=== PATIENT | male | born 1990 | race Two or more races ===

== ENCOUNTER 2019-10-04 19:06 | Emergency (ER) | payer MEDICAID, OTHER ==
[~2019-10-04] VITALS: Ht 177.8 cm; Wt 81.6 kg
--- NOTE | 2019-10-04 19:26 | NUR ---
PT [id number] FROM RETIREMENT. ETOH. ADMITS TO DRINKING LOTS OF VODKA AND GIN. PT LETHARGIC BUT AROUSABLE BY MECHANICAL STIMULATION, RR EVEN AND UNLABORED ON RA W/ NAD NOTED. PT CONNECTED TO THE [employer]RAKE [employer] COATER AND POX
--- NOTE | 2019-10-04 19:30 | NUR ---
Linda nino in ED - 10/04/19 at 2059 by MODE PT REFUSING URINE. BIANCA VILLALOBOS MADE AWARE
[2019-10-04 19:54] LABS: BASOPHILS # (AUTO) 0.1 /CMM (0.0-0.2); BASOPHILS % (AUTO) 1.3 % (0.0-2.0); EOSINOPHILS % (AUTO) 0.5 % (0.0-6.0); HEMATOCRIT 39 % (39-51); HEMOGLOBIN 13.1 g/dL (13.5-17.5); LYMPHOCYTES # (AUTO) 2.4 /CMM (0.8-4.8); LYMPHOCYTES % (AUTO) 29.8 % (20.0-44.0); MEAN CORPUSCULAR HGB CONC 34 g/dl (31.0-36.0); MEAN CORPUSCULAR VOLUME 92 fL (80-96); MONOCYTES # (AUTO) 0.4 /CMM (0.1-1.30); NEUTROPHILS # (AUTO) 5.1 /CMM (1.8-8.9); NEUTROPHILS % (AUTO) 63.4 % (43.0-81.0); PLATELET COUNT (AUTO) 566 /CMM (150-450); RED BLOOD CELL COUNT(AUTO) 4.23 MIL/uL (4.5-6.0)
[2019-10-04 20:07] LABS: CALCIUM, SERUM 8.4 mg/dL (8.5-10.1); CARBON DIOXIDE 28 mmol/L (21-32); CHLORIDE 107 mmol/L (98-107); CREATININE 0.8 mg/dL (0.6-1.3); GLUCOSE 107 mg/dL (74-106); POTASSIUM 3.8 mmol/L (3.5-5.1); SODIUM SERUM 146 mmol/L (136-145); UREA NITROGEN, BLOOD 10 mg/dL (7-18)
[2019-10-04 20:12] LABS: ALANINE AMINOTRANSFERASE 41 U/L (12-78); ALBUMIN 3.9 g/dL (3.4-5.0); ALCOHOL, BLOOD 428 mg/dL (0-0); ALKALINE PHOSPHATASE 143 U/L (46-116); ASPARTATE AMINOTRANSFERASE 36 U/L (15-37); BILIRUBIN,TOTAL 0.2 mg/dL (0.2-1.0); TOTAL PROTEIN, SERUM 7.1 g/dL (6.4-8.2)
[2019-10-04 20:13] LABS: ACETAMINOPHEN < 2 ug/ml (10-30); SALICYLATE < 2.8 mg/dL (2.8-20.0)
--- NOTE | 2019-10-04 20:59 | NUR ---
PT ON CONSTANT OBSERVATION W/ SITTER AT BEDSIDE. SAFETY PRECAUTIONS IMPLEMENTED. PT RESTING COMFORTBALY. VSS AT THIS TIME. WILL CONTINUE TO MONITOR
[2019-10-04 22:11] LABS: APPEARANCE,URINE Clear (CLEAR); BILIRUBIN,URINE Negative (NEGATIVE); BLOOD, URINE Negative Ery/uL (NEGATIVE); COLOR,URINE Yellow (YELLOW); KETONES,URINE Negative (NEGATIVE); LEUKOCYTE ESTERASE ,URINE Negative (NEGATIVE); NITRITE, URINE Negative (NEGATIVE); PROTEIN,URINE Negative (NEGATIVE); UGLUCOSE Negative (NEGATIVE); UROBILINOGEN,URINE 0.2 EU/dL (0.2)
--- NOTE | 2019-10-04 22:34 | NUR ---
PT ON CONSTANT OBSERVATION W/ SITTER AT BEDSIDE. SAFETY PRECAUTIONS IMPLEMENTED. PT RESTING COMFORTBALY. VSS AT THIS TIME. WILL CONTINUE TO MONITOR
--- NOTE | 2019-10-05 01:19 | NUR ---
PT ON CONSTANT OBSERVATION W/ SITTER AT BEDSIDE. SAFETY PRECAUTIONS IMPLEMENTED. PT RESTING COMFORTBALY. VSS AT THIS TIME. WILL CONTINUE TO MONITOR
--- NOTE | 2019-10-05 05:43 | NUR ---
Patient given written and verbal discharge instructions. Patient verbalizes understanding of instructions. Patient is ambulatory with steady gait. Refuses offer of snf placement. Patient given list of available shelters in surrounding area.
[2019-10-05 05:44] VITALS: BP 115/74
== END 2019-10-05 05:44 | disposition home or self-care (01) ==
LOC: ER 19:08
DX: F10.129 Alcohol abuse with intoxication, unspecified (principal); Y90.9 Presence of alcohol in blood, level not specified
CPT/HCPCS: 36415; 80048; 80076; 80305; 80307; 80329; 81001; 85025; 99285; G0480; 81000-TC